=== PATIENT | female | born 1945 | race Native Hawaiian/Other Pacific Islander ===

== ENCOUNTER 2017-08-09 14:01 | Outpatient (CLI) | payer OTHER | END 2017-08-09 15:05 | disposition home or self-care (01) | LOC: MAMMO 14:01 | DX: Z12.31 Encounter for screening mammogram for malignant neoplasm of breast (principal) ==

== ENCOUNTER 2017-10-11 08:47 | Outpatient (CLI) | payer OTHER ==
[2017-10-11 09:40] LABS: PLATELET COUNT 207 K/uL (152-353)
[2017-10-11 10:17] LABS: POTASSIUM 4.1 mmol/L (3.6-5.2)
== END 2017-10-11 19:38 | disposition home or self-care (01) ==
LOC: LABW 08:47
PROVIDERS: Family Medicine
DX: E11.9 Type 2 diabetes mellitus without complications (principal); I10 Essential (primary) hypertension
CPT/HCPCS: 36415; 80053; 80061; 81000; 82043; 82306; 82570; 83036; 84439; 84443; 85027

== ENCOUNTER 2017-11-12 09:39 | Outpatient (CLI) | payer OTHER | END 2017-11-12 11:00 | disposition home or self-care (01) | LOC: MAMMO 09:39 | DX: R92.8 Other abnormal and inconclusive findings on diagnostic imaging of breast (principal) ==

== ENCOUNTER 2018-03-28 09:48 | Outpatient (CLI) | payer OTHER ==
[2018-03-28 10:12] LABS: PLATELET COUNT 194 K/uL (152-353)
[2018-03-28 10:39] LABS: POTASSIUM 4.3 mmol/L (3.6-5.2)
== END 2018-03-28 19:44 | disposition home or self-care (01) ==
LOC: LABW 09:48
PROVIDERS: Family Medicine
DX: E11.9 Type 2 diabetes mellitus without complications (principal); I10 Essential (primary) hypertension
CPT/HCPCS: 36415; 80053; 80061; 81000; 82306; 83036; 84439; 84443; 85027

== ENCOUNTER 2018-04-15 10:15 | Outpatient (CLI) | payer OTHER | END 2018-04-15 21:59 | disposition home or self-care (01) | LOC: US 10:15 | DX: N63.0 Unspecified lump in unspecified breast (principal) ==

== ENCOUNTER 2018-09-25 14:05 | Outpatient (CLI) | payer OTHER | END 2018-09-25 23:18 | disposition home or self-care (01) | LOC: MAMMO 14:05 | DX: R92.8 Other abnormal and inconclusive findings on diagnostic imaging of breast (principal); Z13.820 Encounter for screening for osteoporosis; Z78.0 Asymptomatic menopausal state ==

== ENCOUNTER 2019-03-30 08:53 | Outpatient (CLI) | payer OTHER ==
[2019-03-30 10:30] LABS: PLATELET COUNT 192 K/uL (152-353)
[2019-03-30 10:59] LABS: POTASSIUM 4.3 mmol/L (3.6-5.2)
== END 2019-03-30 23:19 | disposition home or self-care (01) ==
LOC: LABW 08:53
PROVIDERS: Family Medicine
DX: E11.9 Type 2 diabetes mellitus without complications (principal); E78.2 Mixed hyperlipidemia; N95.8 Other specified menopausal and perimenopausal disorders; E55.9 Vitamin D deficiency, unspecified; I10 Essential (primary) hypertension
CPT/HCPCS: 36415; 80053; 80061; 81000; 82306; 83036; 84439; 84443; 85027

== ENCOUNTER 2020-03-29 12:04 | Outpatient (CLI) | payer OTHER | END 2020-03-29 23:25 | disposition home or self-care (01) | LOC: RESP 12:04 | DX: I49.8 Other specified cardiac arrhythmias (principal); I10 Essential (primary) hypertension; E11.9 Type 2 diabetes mellitus without complications | CPT/HCPCS: 93005 ==

== ENCOUNTER 2021-05-04 09:02 | Outpatient (CLI) | payer OTHER ==
[2021-05-04 09:22] LABS: PLATELET COUNT 165 K/uL (152-353)
[2021-05-04 09:47] LABS: POTASSIUM 4.6 mmol/L (3.6-5.2)
== END 2021-05-04 19:08 | disposition home or self-care (01) ==
LOC: LABW 09:02
PROVIDERS: ATTEND Family Medicine
DX: I49.8 Other specified cardiac arrhythmias (principal); E11.9 Type 2 diabetes mellitus without complications; E78.00 Pure hypercholesterolemia, unspecified; E78.49 Other hyperlipidemia; E78.1 Pure hyperglyceridemia; Z78.0 Asymptomatic menopausal state; E55.9 Vitamin D deficiency, unspecified
CPT/HCPCS: 36415; 80053; 80061; 81000; 82306; 83036; 84439; 84443; 85027

== ENCOUNTER 2021-12-26 11:03 | Outpatient (CLI) | payer OTHER ==
[2021-12-26 11:41] LABS: PLATELET COUNT 233 K/uL (152-353)
[2021-12-26 11:56] LABS: POTASSIUM 3.9 mmol/L (3.6-5.2)
== END 2021-12-26 19:44 | disposition home or self-care (01) ==
LOC: LABW 11:03
PROVIDERS: ATTEND Family Medicine
DX: E11.9 Type 2 diabetes mellitus without complications (principal); E78.2 Mixed hyperlipidemia; E55.9 Vitamin D deficiency, unspecified; Z78.0 Asymptomatic menopausal state
CPT/HCPCS: 36415; 80053; 80061; 81000; 82306; 83036; 84439; 84443; 85027

== ENCOUNTER 2022-05-23 12:48 | Outpatient (CLI) | payer OTHER | END 2022-05-23 23:26 | disposition home or self-care (01) | LOC: MAMMO 12:48 | PROVIDERS: ATTEND Family Medicine | DX: Z12.31 Encounter for screening mammogram for malignant neoplasm of breast (principal); Z78.0 Asymptomatic menopausal state ==